=== PATIENT | female | born 1955 | race Caucasian/White ===

== ENCOUNTER 2019-06-26 20:59 | Observation (INO) ==
[2019-06-26] MEDS ORDERED: Naloxone 0.4 MG/ML INJ IVP PRN (23:37)
[2019-06-27 01:01] LABS: INR 2.3; Prothrombin Time 26.7 Seconds (9.4-12.1)
[2019-06-27 01:04] LABS: Activated Partial Thrombo Time 35.7 Seconds (26.0-36.0); Hematocrit 41.1 % (35.3-44.9); Hemoglobin 13.2 g/dL (11.5-15.4); Mean Corpuscular HGB Conc 32.1 g/dL (31.6-35.5); Mean Corpuscular Hemoglobin 26.6 pg (28.0-33.3); Mean Corpuscular Volume 82.7 fL (83.0-100.0); Mean Platelet Volume 10.3 fL (9.4-12.4); Platelet Count 272 K/mcL (140-400); Red Blood Count 4.97 M/mcL (3.82-4.97); Red Cell Distribution Width 15.6 % (11.5-14.5); White Blood Count 8.4 K/mcL (4.3-11.1)
[2019-06-27 01:16] LABS: BUN/Creatinine Ratio 18 (6-26); Blood Urea Nitrogen 12 mg/dL (8-23); Calcium 8.8 mg/dL (8.6-10.3); Carbon Dioxide 26 mEq/L (23-29); Chloride 106 mEq/L (98-107); Chol/HDL Ratio 2.2 (0-4.9); Cholesterol 153 mg/dL (< 200); Glucose 105 mg/dL (70-105); HDL Cholesterol 70 mg/dL (40-59); LDL Cholesterol,Calculated 50 mg/dL (0-99); Osmolality,Calculated 290 (280-300); Potassium 3.6 mEq/L (3.5-5.1); Sodium 140 mEq/L (136-145); Triglycerides 165 mg/dL (< 150); eGFR For African Americans > 60 (> 60); eGFR For Non-African Americans > 60 (> 60)
[2019-06-27] MEDS ORDERED: Nitroglycerin 0.4 MG TAB.SUBL SL PRN (04:19)
[2019-06-27] MEDS ORDERED: Albuterol 2.5 MG/3 ML NEBULIZER IH PRN (04:21)
[2019-06-27] MEDS ORDERED: Warfarin perPT PO PRN (06:00)
[2019-06-27] MEDS ORDERED: Regadenoson 0.4 MG/5 ML SYRINGE IVP ONE (06:19)
[2019-06-27 08:15] LABS: Estimated Average Glucose 128 mg/dl
[2019-06-27 12:13] VITALS: BP 155/87
[2019-06-27] MEDS ORDERED: *HR* Warfarin 5 MG TABLET PO ONE (18:00)
== END 2019-06-27 15:41 | disposition home or self-care (01) ==
LOC: 3BNU
PROVIDERS: ADMIT Internal Medicine; ATTEND Internal Medicine

== ENCOUNTER 2020-07-20 21:39 | Observation (INO) ==
[2020-07-20] MEDS ORDERED: Naloxone 0.4 MG/ML INJ IVP PRN (23:46)
[2020-07-20] MEDS ORDERED: Acetaminophen 325 MG TABLET PO PRN (23:46)
[2020-07-20] MEDS ORDERED: Ondansetron 4 MG/2 ML VIAL IVP PRN (23:46)
[2020-07-21 00:21] LABS: Basophils # 0.1 K/mcL (0.0-0.2); Basophils % 0.6 %; Eosinophils # 0.1 K/mcL (0.0-0.6); Eosinophils % 1.6 %; Hematocrit 43.2 % (35.3-44.9); Immature Granulocytes % 0.1 % (0-4); Lymphocytes # 2.9 K/mcL (0.6-4.6); Lymphocytes % 34.2 %; Mean Corpuscular HGB Conc 32.4 g/dL (31.6-35.5); Mean Corpuscular Hemoglobin 25.6 pg (28.0-33.3); Mean Corpuscular Volume 79.1 fL (83.0-100.0); Mean Platelet Volume 10.8 fL (9.4-12.4); Monocytes # 0.7 K/mcL (0.0-1.3); Monocytes % 8.5 %; Neutrophils # 4.7 K/mcL (1.6-8.9); Platelet Count 226 K/mcL (140-400); Red Blood Count 5.46 M/mcL (3.82-4.97); Red Cell Distribution Width 16.1 % (11.5-14.5); White Blood Count 8.5 K/mcL (4.3-11.1)
[2020-07-21 00:36] LABS: BUN/Creatinine Ratio 16 (6-26); Blood Urea Nitrogen 11 mg/dL (8-23); Calcium 9.3 mg/dL (8.6-10.3); Carbon Dioxide 24 mEq/L (23-29); Chloride 105 mEq/L (98-107); Glucose 110 mg/dL (70-105); Osmolality,Calculated 288 (280-300); Potassium 3.8 mEq/L (3.5-5.1); Sodium 139 mEq/L (136-145); eGFR For African Americans > 60 (> 60); eGFR For Non-African Americans > 60 (> 60)
[2020-07-21 00:38] LABS: Phosphorous 3.2 mg/dL (2.7-4.5)
[2020-07-21 00:39] LABS: Troponin I < 0.03 ng/mL (< 0.04)
[2020-07-21] MEDS: *HR* HYDROcodone/Acet 5/325 mg TABLET PO PRN ×2 (00:42→07:46)
[2020-07-21 05:47] LABS: Hematocrit 41.7 % (35.3-44.9); Hemoglobin 13.2 g/dL (11.5-15.4)
[2020-07-21] MEDS ORDERED: Pantoprazole 40 MG VIAL IVP SCH (06:00)
[2020-07-21 07:05] LABS: INR 2.2; Prothrombin Time 24.6 Seconds (9.4-12.1)
[2020-07-21 10:38] VITALS: BP 150/82
[2020-07-21] MEDS ORDERED: SODIUM CHLORIDE/NAHCO3/KCL/PEG 4,000 ML SOLN.RECON PO ONE (17:00)
== END 2020-07-21 14:36 | disposition home or self-care (01) ==
LOC: 3ANU
PROVIDERS: ADMIT Family Medicine; ATTEND Family Medicine

== ENCOUNTER 2022-01-23 21:11 | Inpatient (IN) ==
[2022-01-23] MEDS ORDERED: 0.9 % Sodium Chloride 1,000 ML IV ONE (22:24)
[2022-01-23] MEDS ORDERED: Morphine Sulfate 2 MG/ML SYRINGE IVP ONE (22:24)
[2022-01-23] MEDS ORDERED: Vancomycin 1,250 MG/262.5 ML IV.SOLN IVPB ONE (22:27)
[2022-01-23 23:25] LABS: Basophils # 0.1 K/mcL (0.0-0.2); Basophils % 0.5 %; Eosinophils # 0.2 K/mcL (0.0-0.6); Eosinophils % 1.4 %; Hematocrit 44.3 % (35.3-44.9); Immature Granulocytes % 0.3 % (0-4); Lymphocytes # 2.2 K/mcL (0.6-4.6); Lymphocytes % 17.2 %; Mean Corpuscular HGB Conc 33.9 g/dL (31.6-35.5); Mean Corpuscular Hemoglobin 29.4 pg (28.0-33.3); Mean Corpuscular Volume 86.9 fL (83.0-100.0); Mean Platelet Volume 10.8 fL (9.4-12.4); Monocytes # 0.8 K/mcL (0.0-1.3); Monocytes % 6.5 %; Neutrophils # 9.3 K/mcL (1.6-8.9); Platelet Count 229 K/mcL (140-400); Red Cell Distribution Width 13.8 % (11.5-14.5); Segmented Neutrophils % 74.1 %; White Blood Count 12.6 K/mcL (4.3-11.1)
[2022-01-23 23:36] LABS: Alanine Aminotransferase 19 Units/L (7-52); Albumin 4.1 g/dL (3.5-5.7); Albumin/Globulin Ratio 1.4 (1.1-2.2); Alkaline Phosphatase 116 Units/L (34-104); Aspartate Amino Transferase 16 Units/L (13-39); BUN/Creatinine Ratio 15 (6-26); Bilirubin,Total 0.6 mg/dL (0.3-1.0); Blood Urea Nitrogen 10 mg/dL (8-23); C-Reactive Protein 35 mg/L (Less than 10); Calcium 9.5 mg/dL (8.6-10.3); Carbon Dioxide 26 mEq/L (23-29); Chloride 98 mEq/L (98-107); Glucose 143 mg/dL (70-105); Osmolality,Calculated 282 (280-300); Potassium 3.2 mEq/L (3.5-5.1); Sodium 135 mEq/L (136-145); Total Protein 7.1 g/dL (6.4-8.9); Vancomycin,Trough 2 mcg/mL (5-10)
[2022-01-24] MEDS ORDERED: Naloxone 0.4 MG/ML INJ IVP PRN (00:10)
[2022-01-24] MEDS ORDERED: Ondansetron 4 MG/2 ML VIAL IVP PRN (00:10)
[2022-01-24] MEDS ORDERED: Vancomycin 1,750 MG in 0.9 % Sodium Chloride 250 ML IVPB SCH (02:00)
[2022-01-24 04:47] LABS: Hematocrit 42.9 % (35.3-44.9); Hemoglobin 14.2 g/dL (11.5-15.4); Mean Corpuscular HGB Conc 33.1 g/dL (31.6-35.5); Mean Corpuscular Hemoglobin 28.7 pg (28.0-33.3); Mean Corpuscular Volume 86.7 fL (83.0-100.0); Mean Platelet Volume 10.4 fL (9.4-12.4); Platelet Count 215 K/mcL (140-400); Red Blood Count 4.95 M/mcL (3.82-4.97); Red Cell Distribution Width 13.8 % (11.5-14.5); White Blood Count 9.9 K/mcL (4.3-11.1)
[2022-01-24 05:06] LABS: BUN/Creatinine Ratio 16 (6-26); Blood Urea Nitrogen 8 mg/dL (8-23); Calcium 8.8 mg/dL (8.6-10.3); Carbon Dioxide 23 mEq/L (23-29); Chloride 107 mEq/L (98-107); Glucose 120 mg/dL (70-105); Osmolality,Calculated 288 (280-300); Potassium 3.4 mEq/L (3.5-5.1); Sodium 139 mEq/L (136-145)
[2022-01-24] MEDS: Acetaminophen 325 MG TABLET PO PRN (07:00)
[2022-01-24] MEDS: Apixaban 2.5 MG TABLET PO SCH ×2 (10:27→20:46)
[2022-01-24] MEDS: Vancomycin 1,500 MG/265 ML IV.SOLN IVPB SCH (11:47)
[2022-01-24] MEDS: Gabapentin 300 MG CAPSULE PO SCH ×2 (14:30→20:45)
[2022-01-24] MEDS: Magnesium Oxide 400 MG TABLET PO SCH (20:46)
[2022-01-25] MEDS: Vancomycin 1,500 MG/265 ML IV.SOLN IVPB SCH ×2 (00:29→12:02)
[2022-01-25] MEDS: Gabapentin 300 MG CAPSULE PO SCH ×3 (08:24→21:40)
[2022-01-25] MEDS: Apixaban 2.5 MG TABLET PO SCH ×2 (08:25→21:41)
[2022-01-25] MEDS: Magnesium Oxide 400 MG TABLET PO SCH ×2 (08:25→21:41)
[2022-01-25] MEDS: amLODIPine 5 MG TABLET PO SCH (15:42)
[2022-01-25] MEDS: FLUoxetine 20 MG CAPSULE PO SCH (15:43)
[2022-01-26] MEDS: Vancomycin 1,500 MG/265 ML IV.SOLN IVPB SCH ×2 (00:36→12:22)
[2022-01-26] MEDS: amLODIPine 5 MG TABLET PO SCH (08:03)
[2022-01-26] MEDS: FLUoxetine 20 MG CAPSULE PO SCH (08:03)
[2022-01-26] MEDS: Gabapentin 300 MG CAPSULE PO SCH ×2 (08:04→20:32)
[2022-01-26] MEDS: Magnesium Oxide 400 MG TABLET PO SCH ×2 (08:04→20:32)
[2022-01-26] MEDS: Apixaban 2.5 MG TABLET PO SCH ×2 (08:04→20:32)
[2022-01-26] MEDS: Acetaminophen 325 MG TABLET PO PRN (18:24)
[2022-01-27] MEDS: Vancomycin 1,500 MG/265 ML IV.SOLN IVPB SCH (00:04)
[2022-01-27] MEDS: Gabapentin 300 MG CAPSULE PO SCH ×2 (07:52→20:31)
[2022-01-27] MEDS: amLODIPine 5 MG TABLET PO SCH (07:52)
[2022-01-27] MEDS: FLUoxetine 20 MG CAPSULE PO SCH (07:52)
[2022-01-27] MEDS: Apixaban 2.5 MG TABLET PO SCH ×2 (07:53→20:31)
[2022-01-27] MEDS: Magnesium Oxide 400 MG TABLET PO SCH ×2 (07:53→20:31)
[2022-01-27 08:07] LABS: Basophils % 0.5 %; Eosinophils # 0.1 K/mcL (0.0-0.6); Eosinophils % 1.8 %; Hematocrit 43.2 % (35.3-44.9); Hemoglobin 14.5 g/dL (11.5-15.4); Immature Granulocytes % 0.3 % (0-4); Lymphocytes # 1.5 K/mcL (0.6-4.6); Lymphocytes % 19.3 %; Mean Corpuscular HGB Conc 33.6 g/dL (31.6-35.5); Mean Corpuscular Hemoglobin 28.5 pg (28.0-33.3); Mean Platelet Volume 10.4 fL (9.4-12.4); Monocytes # 0.5 K/mcL (0.0-1.3); Monocytes % 6.3 %; Neutrophils # 5.5 K/mcL (1.6-8.9); Platelet Count 245 K/mcL (140-400); Red Blood Count 5.08 M/mcL (3.82-4.97); Red Cell Distribution Width 13.5 % (11.5-14.5); Segmented Neutrophils % 71.8 %; White Blood Count 7.7 K/mcL (4.3-11.1)
[2022-01-27 08:27] LABS: BUN/Creatinine Ratio 28 (6-26); Blood Urea Nitrogen 13 mg/dL (8-23); Calcium 9.4 mg/dL (8.6-10.3); Carbon Dioxide 27 mEq/L (23-29); Chloride 105 mEq/L (98-107); Glucose 117 mg/dL (70-105); Osmolality,Calculated 291 (280-300); Potassium 3.6 mEq/L (3.5-5.1); Sodium 140 mEq/L (136-145)
[2022-01-27] MEDS: Vancomycin 1,750 MG/517.5 ML IV.SOLN IVPB SCH (12:07)
[2022-01-28] MEDS: Vancomycin 1,750 MG/517.5 ML IV.SOLN IVPB SCH ×2 (02:12→12:32)
[2022-01-28 04:21] LABS: BUN/Creatinine Ratio 38 (6-26); Blood Urea Nitrogen 20 mg/dL (8-23); Calcium 9.2 mg/dL (8.6-10.3); Carbon Dioxide 28 mEq/L (23-29); Chloride 105 mEq/L (98-107); Glucose 118 mg/dL (70-105); Osmolality,Calculated 294 (280-300); Potassium 3.5 mEq/L (3.5-5.1); Sodium 140 mEq/L (136-145)
[2022-01-28] MEDS: Gabapentin 300 MG CAPSULE PO SCH (08:24)
[2022-01-28] MEDS: FLUoxetine 20 MG CAPSULE PO SCH (08:26)
[2022-01-28] MEDS: Magnesium Oxide 400 MG TABLET PO SCH (08:27)
[2022-01-28] MEDS: Apixaban 2.5 MG TABLET PO SCH (08:27)
[2022-01-28] MEDS: amLODIPine 5 MG TABLET PO SCH (08:28)
[2022-01-28] MEDS ORDERED: hydroCHLOROthiazide 25 MG TABLET PO SCH (09:00)
[2022-01-28] MEDS ORDERED: Aspirin Enteric Coated 81 MG Tablet PO SCH (09:00)
[2022-01-28 11:17] VITALS: BP 155/82; PULSE 87; TEMP 98.2; O2SAT 95
== END 2022-01-28 15:12 | disposition home or self-care (01) | DRG 872 ==
LOC: EMEROOARM 21:11 → 3ANU 21:11 → SUATTDRO 01-26 09:55
PROVIDERS: ADMIT Student in an Organized Health Care Education/Training Program; ATTEND Internal Medicine

== ENCOUNTER 2022-02-02 00:05 | Observation (INO) ==
[2022-02-02 00:42] LABS: Basophils # 0.1 K/mcL (0.0-0.2); Basophils % 0.4 %; Eosinophils # 0.1 K/mcL (0.0-0.6); Eosinophils % 0.8 %; Hemoglobin 14.9 g/dL (11.5-15.4); Immature Granulocytes % 0.3 % (0-4); Lymphocytes # 0.3 K/mcL (0.6-4.6); Lymphocytes % 2.7 %; Mean Corpuscular HGB Conc 34.7 g/dL (31.6-35.5); Mean Corpuscular Hemoglobin 29.2 pg (28.0-33.3); Mean Corpuscular Volume 84.3 fL (83.0-100.0); Mean Platelet Volume 10.7 fL (9.4-12.4); Monocytes % 0.3 %; Platelet Count 248 K/mcL (140-400); Red Cell Distribution Width 13.7 % (11.5-14.5); Segmented Neutrophils % 95.5 %
[2022-02-02 00:45] LABS: Neutrophils # 11.2 K/mcL (1.6-8.9); White Blood Count 11.7 K/mcL (4.3-11.1)
[2022-02-02 01:07] LABS: Albumin 3.9 g/dL (3.5-5.7); Albumin/Globulin Ratio 1.3 (1.1-2.2); Bilirubin,Direct 0.1 mg/dL (0.0-0.2); Bilirubin,Indirect 0.5 mg/dL (0.0-1.0); Bilirubin,Total 0.6 mg/dL (0.3-1.0); Calcium 9.3 mg/dL (8.6-10.3); Magnesium 1.2 mg/dL (1.6-2.6); Potassium 3.4 mEq/L (3.5-5.1); Total Protein 6.9 g/dL (6.4-8.9); Troponin I 0.03 ng/mL (< 0.04)
[2022-02-02] MEDS ORDERED: 0.9 % Sodium Chloride 1,000 ML IVC ONE ×2 (01:07→02:29)
[2022-02-02] MEDS ORDERED: Cefepime HCl 2,000 MG in 0.9 % Sodium Chloride 10 ML IVP ONE (01:48)
[2022-02-02 01:54] LABS: Bilirubin,Urine Negative (Negative); Blood,Urine Negative (Negative); Clarity,Urine Clear (Clear); Color,Urine Yellow (Yellow); Glucose,Urine (UA) Normal (Normal); Hyaline Casts,Urine Few per lpf (None Seen); Ketones,Urine Negative (Negative); Leukocyte Esterase,Urine Negative (Negative); Mucus,Urine Few per lpf (None-Few); Nitrite,Urine Negative (Negative); PH,Urine 6.5 pH Units (5.0-8.0); Protein,Urine 30 mg/dL (Neg-Trace); RBC,Urine 0-3 per hpf (0-3); Specific Gravity,Urine 1.019 (1.010-1.025); Squamous Epithelial Cell,Urine Few per hpf (None-Few); Urobilinogen,Urine Normal (Normal); WBC,Urine 0-3 per hpf (0-3)
[2022-02-02] MEDS ORDERED: Vancomycin 1,750 MG/517.5 ML IV.SOLN IVPB ONE (02:00)
[2022-02-02] MEDS ORDERED: Naloxone 0.4 MG/ML INJ IVP PRN (02:36)
[2022-02-02] MEDS ORDERED: Acetaminophen 325 MG TABLET PO PRN (02:36)
[2022-02-02] MEDS ORDERED: Ondansetron 4 MG/2 ML VIAL IVP PRN ×2 (02:36→13:05)
[2022-02-02] MEDS ORDERED: Ringers Solution, Lactated 1,000 ML IVC ONE (04:26)
[2022-02-02] MEDS ORDERED: Ipratropium/Albuterol Neb 3 ML IH PRN (04:28)
[2022-02-02 05:29] LABS: Basophils % 0.3 %; Eosinophils # 0.1 K/mcL (0.0-0.6); Eosinophils % 0.5 %; Hematocrit 36.3 % (35.3-44.9); Immature Granulocytes % 0.3 % (0-4); Lymphocytes # 0.8 K/mcL (0.6-4.6); Lymphocytes % 8.4 %; Mean Corpuscular HGB Conc 33.9 g/dL (31.6-35.5); Mean Corpuscular Volume 85.6 fL (83.0-100.0); Mean Platelet Volume 10.6 fL (9.4-12.4); Monocytes # 0.1 K/mcL (0.0-1.3); Monocytes % 0.8 %; Neutrophils # 8.5 K/mcL (1.6-8.9); Platelet Count 197 K/mcL (140-400); Red Blood Count 4.24 M/mcL (3.82-4.97); Red Cell Distribution Width 13.9 % (11.5-14.5); Segmented Neutrophils % 89.7 %; White Blood Count 9.5 K/mcL (4.3-11.1)
[2022-02-02 05:36] LABS: INR 1.2; Prothrombin Time 13.8 Seconds (9.4-12.1)
[2022-02-02 05:38] LABS: Activated Partial Thrombo Time 29.6 Seconds (26.0-36.0)
[2022-02-02 05:43] LABS: Magnesium 1.8 mg/dL (1.6-2.6); Phosphorous 3.5 mg/dL (2.7-4.5)
[2022-02-02 05:57] LABS: Hemoglobin 12.3 g/dL (11.5-15.4)
[2022-02-02] MEDS ORDERED: Cefepime HCl 2,000 MG in 0.9 % Sodium Chloride Mini Bag 100 ML IVPB SCH (08:00)
[2022-02-02] MEDS: Apixaban 2.5 MG TABLET PO SCH ×2 (08:57→19:29)
[2022-02-02] MEDS: FLUoxetine 20 MG CAPSULE PO SCH (08:58)
[2022-02-02] MEDS: Lactobacillus 1 EACH CAP.SPRINK PO SCH ×2 (08:58→19:28)
[2022-02-02] MEDS: Gabapentin 300 MG CAPSULE PO SCH ×2 (08:58→19:29)
[2022-02-02] MEDS ORDERED: Iopamidol - 370 500 ML MLS IVP ONE (12:27)
[2022-02-02] MEDS: *HR* HYDROcodone/Acet 5/325 mg TABLET PO PRN ×2 (13:44→21:35)
[2022-02-02] MEDS: Vancomycin 1,500 MG/265 ML IV.SOLN IVPB SCH (15:13)
[2022-02-02] MEDS: cefTRIAXone 2,000 MG in 0.9 % Sodium Chloride Mini Bag 100 ML IVPB SCH (18:38)
[2022-02-02] MEDS ORDERED: Ondansetron 4 MG/2 ML VIAL IVP SCH (21:00)
[2022-02-02] MEDS ORDERED: Sulfamethoxazole/Trimeth DS 1 EACH TABLET PO SCH (21:00)
[2022-02-03] MEDS: Vancomycin 1,500 MG/265 ML IV.SOLN IVPB SCH (03:23)
[2022-02-03 03:46] LABS: Basophils % 1.1 %; Eosinophils # 0.2 K/mcL (0.0-0.6); Eosinophils % 5.4 %; Hematocrit 37.6 % (35.3-44.9); Hemoglobin 12.3 g/dL (11.5-15.4); Immature Granulocytes % 0.5 % (0-4); Lymphocytes % 44.4 %; Mean Corpuscular HGB Conc 32.7 g/dL (31.6-35.5); Mean Corpuscular Hemoglobin 28.4 pg (28.0-33.3); Mean Corpuscular Volume 86.8 fL (83.0-100.0); Mean Platelet Volume 10.9 fL (9.4-12.4); Monocytes # 0.2 K/mcL (0.0-1.3); Monocytes % 6.2 %; Neutrophils # 1.6 K/mcL (1.6-8.9); Platelet Count 191 K/mcL (140-400); Red Blood Count 4.33 M/mcL (3.82-4.97); Segmented Neutrophils % 42.4 %
[2022-02-03 03:49] LABS: Lymphocytes # 1.6 K/mcL (0.6-4.6); White Blood Count 3.7 K/mcL (4.3-11.1)
[2022-02-03 04:07] LABS: BUN/Creatinine Ratio 16 (6-26); Blood Urea Nitrogen 11 mg/dL (8-23); Calcium 8.5 mg/dL (8.6-10.3); Carbon Dioxide 27 mEq/L (23-29); Chloride 111 mEq/L (98-107); Glucose 130 mg/dL (70-105); Osmolality,Calculated 293 (280-300); Potassium 3.9 mEq/L (3.5-5.1); Sodium 141 mEq/L (136-145)
[2022-02-03 04:37] LABS: Estimated Average Glucose 134 mg/dl; Hemoglobin A1C 6.3 %
[2022-02-03] MEDS ORDERED: hydroCHLOROthiazide 25 MG TABLET PO SCH (09:00)
[2022-02-03] MEDS ORDERED: Aspirin Enteric Coated 81 MG Tablet PO SCH (09:00)
[2022-02-03] MEDS: Apixaban 2.5 MG TABLET PO SCH (09:31)
[2022-02-03] MEDS: Gabapentin 300 MG CAPSULE PO SCH (09:31)
[2022-02-03] MEDS: FLUoxetine 20 MG CAPSULE PO SCH (09:31)
[2022-02-03] MEDS: Lactobacillus 1 EACH CAP.SPRINK PO SCH (09:31)
[2022-02-03] MEDS: cefTRIAXone 2,000 MG in 0.9 % Sodium Chloride Mini Bag 100 ML IVPB SCH (09:32)
[2022-02-03 11:39] VITALS: BP 145/84; PULSE 80; TEMP 97.8; O2SAT 96
== END 2022-02-03 13:17 | disposition home or self-care (01) ==
LOC: SUATTDRO → EMEROOARM 00:05 → 3ANU 00:05 → SUATTDRO 02:42 → 3ANU 03:40
PROVIDERS: ADMIT Internal Medicine; ATTEND Family Medicine